=== PATIENT | male | born 1990 | race Asian ===

== ENCOUNTER 2021-04-19 21:36 | Emergency (ER) | payer SELFPAY ==
--- NOTE | 2021-04-19 23:04 | EDM.PDOC ---
<Shira Limon - Last Filed: 04/19/21 22:59> ED HPI GENERAL MEDICAL PROBLEM - General Chief Complaint: Lower Extremity Injury/Pain Stated Complaint: PAIN LFT KNEE Time Seen by Provider: 04/19/21 22:30 Source of Information: Reports: Patient, RN, RN Notes Reviewed History Limitations: Reports: No Limitations - History of Present Illness INITIAL COMMENTS - FREE TEXT/NARRATIVE: Juan Carlos is a 30 y/o male who presents to the ED via personal vehicle with complaints of anteromedial left knee pain. The patient reports first noting the pain about two days ago. He does not remember injury to the joint, but notes he was intoxicated and feels as though he may have fallen or twisted his knee during his intoxication. He denies history of injury to the extremity. He reports he has taken one dose of ibuprofen which offered her little to no alleviation of pain. Left Knee Pain Score (Numeric/FACES): 7 - Related Data Allergies Allergy/AdvReac Type Severity Reaction Status Date / Time No Known Allergies Allergy Verified 04/19/21 21:58 Home Meds: Home Meds . [No Known Home Meds] 05/04/14 [History] Past Medical History - Past Health History Medical/Surgical History: Denies Medical/Surgical History Social & Family History - Tobacco Use Tobacco Use Status *Q: Current Status Unknown - Caffeine Use Caffeine Use: Reports: Energy Drinks - Recreational Drug Use Recreational Drug Use: No Review of Systems - Review of Systems Review Of Systems: Comprehensive ROS is negative, except as noted in HPI. ED EXAM, GENERAL - Physical Exam Exam: See Below Exam Limited By: No Limitations General Appearance: Alert, No Apparent Distress Throat/Mouth: Normal Inspection, Normal Oropharynx, Normal Voice, No Airway Compromise Head: Atraumatic, Normocephalic Respiratory/Chest: No Respiratory Distress, Lungs Clear, Normal Breath Sounds, No Accessory Muscle Use Cardiovascular: Normal Peripheral Pulses, Regular Rate, Rhythm, No Edema, No Gallop, No JVD, No Murmur, No Rub Peripheral Pulses: 2+: Radial (L), Radial (R), Dorsalis Pedis (L), Dorsalis Pedis (R) GI/Abdominal: Normal Bowel Sounds, Soft, Non-Tender, No Distention, No Abnormal Bruit, No Mass (Male) Exam: Deferred Rectal (Males) Exam: Deferred Back Exam: Normal Inspection, Full Range of Motion Extremities: Normal Range of Motion (Pain with motion), No Pedal Edema, Normal Capillary Refill, Leg Pain (Anteromedial knee pain). No: Joint Swelling, Increased Warmth, Mottled, Pallor, Redness Neurological: Alert, Oriented, CN II-XII Intact, Normal Cognition, Normal Reflexes, No Motor/Sensory Deficits, Abnormal Gait (Left-limping gait ) Psychiatric: Normal Affect, Normal Mood Skin Exam: Warm, Dry, Intact, Normal Color, No Rash. No: Ecchymosis, Erythema, Jaundice, Mottled, Pallor, Petechiae Departure - Departure Disposition: Home, Self-Care 01 Clinical Impression: Left medial knee pain - Discharge Information Instructions: Acute Knee Pain, Adult, [id number] Forms: ED Department Discharge Additional Instructions: ice rest yaima wrap recheck clinic one week if not improving, sooner if worsening pain or increased swelling alternate tylenol 500mg and ibuprofen 600mg every 4 hours as needed for discomfort Sepsis Event Note (ED) - Evaluation Sepsis Screening Result: No Definite Risk <Michelle Marie - Last Filed: 04/20/21 00:09> Course - Vital Signs Last Recorded V/S: Last Vital Signs Temp 97.6 F 04/19/21 21:48 Pulse 79 04/19/21 21:48 Resp 19 04/19/21 21:48 BP 150/90 H 04/19/21 21:48 Pulse Ox 99 04/19/21 21:48 Departure - Departure Time of Disposition: 00:06 Condition: Good - Discharge Information *PRESCRIPTION DRUG MONITORING PROGRAM REVIEWED*: No *COPY OF PRESCRIPTION DRUG MONITORING REPORT IN PATIENT JULIEN: No Sepsis Event Note (ED) - Focused Exam Vital Signs: Vital Signs Temp Pulse Resp BP Pulse Ox 04/19/21 21:48 97.6 F 79 19 150/90 H 99
--- NOTE | 2021-04-19 23:52 | CR ---
PROCEDURE INFORMATION: Exam: XR Right Knee Exam date and time: 04/19/2021 11:08 PM Age: 30 years old Clinical indication: Other: Pain; Patient HX: Doesnt know how he hurt it; Additional info: Anteromedial knee pain TECHNIQUE: Imaging protocol: XR Right knee. Views: 3 views. COMPARISON: No relevant prior studies available. FINDINGS: Bones/joints: Normal. Soft tissues: Normal. IMPRESSION: Normal knee radiography.
== END 2021-04-20 00:20 | disposition home or self-care (01) ==
LOC: DL.ED 21:36
DX: M25.562 Pain in left knee (principal)
CPT/HCPCS: 73562-RT; 99283-25

== ENCOUNTER 2021-05-05 22:36 | Emergency (ER) | payer SELFPAY ==
[2021-05-05] MEDS ORDERED: Cephalexin 500 MG Cap PO ONE (23:07)
[2021-05-05] MEDS ORDERED: Bacitracin Oint 1 GM U/D Packet TOP ONE (23:07)
--- NOTE | 2021-05-05 23:12 | EDM.PDOC ---
ED HPI GENERAL MEDICAL PROBLEM - General Chief Complaint: Upper Extremity Injury/Pain Stated Complaint: INFECTION IN LEFT INDEX FINGER Time Seen by Provider: 05/05/21 23:00 Source of Information: Reports: Patient History Limitations: Reports: No Limitations - History of Present Illness INITIAL COMMENTS - FREE TEXT/NARRATIVE: This 30 yo male patient reports to the ED with redness, pain and drainage from his left index finger. The patient reports he may have had a hangnail in the past, but noticed the pain, redness and drainage today. The patient has not been seen for current symptoms. Onset: Unknown/Unsure Duration: Constant Location: Reports: Upper Extremity, Left Quality: Reports: Ache, Dull, Throbbing Severity: Moderate Improves with: Reports: None Worsens with: Reports: None Context: Reports: Other Associated Symptoms: Reports: No Other Symptoms Left Finger-Index Pain Score (Numeric/FACES): 6 - Related Data Allergies Allergy/AdvReac Type Severity Reaction Status Date / Time No Known Allergies Allergy Verified 05/05/21 22:42 Home Meds: Home Meds . [No Known Home Meds] 05/04/14 [History] Past Medical History - Past Health History Medical/Surgical History: Denies Medical/Surgical History Social & Family History - Family History Family Medical History: No Pertinent Family History - Tobacco Use Tobacco Use Status *Q: Never Tobacco User - Caffeine Use Caffeine Use: Reports: None - Recreational Drug Use Recreational Drug Use: No Review of Systems - Review of Systems Review Of Systems: Comprehensive ROS is negative, except as noted in HPI. ED EXAM, GENERAL - Physical Exam Exam: See Below Exam Limited By: No Limitations General Appearance: Alert, WD/WN, No Apparent Distress Eye Exam: Bilateral Eye: EOMI, Normal Inspection, PERRL Ears: Normal External Exam, Hearing Grossly Normal Nose: Normal Inspection, Normal Mucosa, No Blood Throat/Mouth: Normal Lips, Normal Teeth, Normal Voice, No Airway Compromise Head: Atraumatic, Normocephalic Neck: Normal Inspection, Supple, Non-Tender, Full Range of Motion Respiratory/Chest: No Respiratory Distress, Lungs Clear, Normal Breath Sounds, No Accessory Muscle Use, Chest Non-Tender Cardiovascular: Normal Peripheral Pulses, Regular Rate, Rhythm GI/Abdominal: Normal Bowel Sounds, Soft, Non-Tender, No Organomegaly, No Distention, No Abnormal Bruit, No Mass (Male) Exam: Deferred Rectal (Males) Exam: Deferred Back Exam: Normal Inspection, Full Range of Motion, NT Extremities: Arm Pain (right distal 2nd finger erythema, drainage) Neurological: Alert, Oriented, CN II-XII Intact, Normal Cognition, Normal Gait, Normal Reflexes, No Motor/Sensory Deficits Psychiatric: Normal Affect, Normal Mood Skin Exam: Warm, Dry Lymphatic: No Adenopathy Course - Vital Signs Last Recorded V/S: Last Vital Signs Temp 97.5 F 05/05/21 22:42 Pulse 96 05/05/21 22:42 Resp 18 05/05/21 22:42 BP 129/75 05/05/21 22:42 Pulse Ox 99 05/05/21 22:42 - Orders/Labs/Meds Meds: Medications Discontinued Medications Generic Name Dose Route Start Last Admin Trade Name Rafael PRN Reason Stop Dose Admin Bacitracin 1 dose 05/05/21 23:07 Bacitracin Oint 1 Gm U/D Packet TOP 05/05/21 23:08 ONETIME ONE Cephalexin 500 mg 05/05/21 23:07 Cephalexin 500 Mg Cap PO 05/05/21 23:08 ONETIME ONE Departure - Departure Time of Disposition: 23:09 Disposition: Home, Self-Care 01 Condition: Fair Clinical Impression: Cellulitis of left index finger - Discharge Information *PRESCRIPTION DRUG MONITORING PROGRAM REVIEWED*: Not Applicable *COPY OF PRESCRIPTION DRUG MONITORING REPORT IN PATIENT JULIEN: Not Applicable Instructions: Cellulitis, Adult, [id number] Forms: ED Department Discharge Care Plan Goals: The patient was advised of the examination results during the visit. The patient's finger was dressed with antibiotic ointment during the visit. The patient was given an oral dose of Keflex (500 mg) while in the ED. The patient was discharged with a script for Keflex (500 mg) #30 to take 1 by mouth 3 times per day for 10 days. The patient was encouraged to soak his finger 2 times per day over the next week. If the patient has any additional symptoms or concerns, the patient should either follow-up with his primary care facility or return to the emergency department. Sepsis Event Note (ED) - Evaluation Sepsis Screening Result: No Definite Risk - Focused Exam Vital Signs: Vital Signs Temp Pulse Resp BP Pulse Ox 05/05/21 22:42 97.5 F 96 18 129/75 99
== END 2021-05-05 23:18 | disposition home or self-care (01) ==
LOC: DL.ED 22:36
DX: L03.012 Cellulitis of left finger (principal)
CPT/HCPCS: 99282; 99283; A9270